=== PATIENT | female | born 1990 | race Caucasian/White ===

== ENCOUNTER 2017-05-09 20:28 | Emergency (ER) | payer SELFPAY ==
[2017-05-09 20:45] VITALS: O2SAT 99
[2017-05-09 21:03] LABS: RBC URINE < 1 /hpf (0-3); URINE BILIRUBIN NEGATIVE (NEGATIVE); URINE COLOR Colorless (YELLOW); URINE GLUCOSE (UA) NORMAL (Normal); URINE KETONE NEGATIVE (NEGATIVE); URINE LEUKOCYTE ESTERASE NEG Leu/uL (Negative); URINE PROTEIN NEGATIVE (NEGATIVE); URINE UROBILINOGEN NORMAL mg/dL (0.2-1.0); WBC URINE < 1 /hpf (0-5)
[2017-05-09 21:05] LABS: URINE BLOOD TRACE (NEGATIVE)
[2017-05-09 21:30] LABS: BASO % 0.3 % (0.0-2.0); EOS # 0.1 K/uL (0.0-0.7); EOS % 1.1 % (0.0-4.0); HEMATOCRIT 38.1 % (34.0-47.0); LYMPH # 2.4 K/uL (1.0-4.3); LYMPH % 29.2 % (20.0-40.0); MEAN CELL VOLUME 86.7 fL (81.0-99.0); MEAN CORPUSCULAR HEMOGLOBIN 29.5 pg (27.0-31.0); MEAN CORPUSCULAR HGB CONC 34.1 g/dL (33.0-37.0); MEAN PLATELET VOLUME 10.4 fL (7.2-11.7); MONO # 0.4 K/uL (0.0-0.8); MONO % 5.2 % (0.0-10.0); RED CELL DISTRIBUTION WIDTH 12.9 % (11.5-14.5); WHITE BLOOD COUNT 8.4 K/uL (4.8-10.8)
[2017-05-09 21:38] LABS: CHLORIDE 101 mmol/L (98-107); SODIUM 136 mmol/L (132-148)
[2017-05-09 21:39] LABS: POTASSIUM 4.2 mmol/L (3.6-5.2)
[2017-05-09 21:40] LABS: GFR AFRICAN-AMERICAN > 60
[2017-05-09 21:41] LABS: ALB/GLOB RATIO 1.2 (1.0-2.1); ALKALINE PHOSPHATASE 58 U/L (38-126); ALT/SGPT 27 U/L (9-52); AST/SGOT 23 U/L (14-36); BILIRUBIN,TOTAL 0.7 mg/dL (0.2-1.3); BLOOD UREA NITROGEN 11 mg/dL (7-17); CARBON DIOXIDE 25 mmol/L (22-30); GLUCOSE,RANDOM 83 mg/dL (65-105); TOTAL PROTEIN 8.4 g/dL (6.3-8.3)
[2017-05-09 21:42] LABS: CALCIUM 9.7 mg/dl (8.6-10.4)
--- NOTE | 2017-05-09 23:00 | US ---
EXAM: US First Trimester, Transabdominal CLINICAL HISTORY: 26 years old, female; Pain; complicated by abdominal or pelvic pain; Lower; First trimester; Gestational age or lmp: 04-06-2017; ; Additional info: Pelvic pain, R/O ectopic TECHNIQUE: Real-time transabdominal obstetrical ultrasound of the maternal pelvis and a first trimester with image documentation. COMPARISON: No relevant prior studies available. FINDINGS: Gestation: Probable gestational sac. No yolk sac. No pole. Mean sac diameter of 0.41 cm, out of range. Uterus/cervix: No subchorionic hemorrhage. No cervical dilatation or effacement. Ovaries: RIGHT ovary: Normal. LEFT ovary: 3.3 x 2.7 x 2.3 hypoechoic lesion with internal echoes. No adnexal masses. Free fluid: Small free fluid within pelvis. IMPRESSION: 1. Probable intrauterine , of uncertain viability. Recommend followup. 2. Probable complex LEFT ovarian cyst. Recommend followup. EXAM: US , Transvaginal CLINICAL HISTORY: 26 years old, female; Pain; complicated by abdominal or pelvic pain; Lower; First trimester; Gestational age or lmp: 04-06-2017; ; Additional info: Pelvic pain, R/O ectopic TECHNIQUE: Real-time transvaginal obstetrical ultrasound of the maternal pelvis and a first trimester with image documentation. Transvaginal imaging was used for better evaluation of the fetus and adnexa. COMPARISON: No relevant prior studies available. FINDINGS: Gestation: Probable gestational sac. No yolk sac. No pole. Mean sac diameter of 0.41 cm, out of range. Uterus/cervix: No subchorionic hemorrhage. No cervical dilatation or effacement. Ovaries: RIGHT ovary: Normal. LEFT ovary: 3.3 x 2.7 x 2.3 hypoechoic lesion with internal echoes. No adnexal masses. Free fluid: Small free fluid within pelvis.
--- NOTE | 2017-05-09 23:25 | C.PDOC ---
Time Seen by Provider: 05/09/17 20:43 Chief Complaint (Nursing): Abdominal Pain History Per: Patient, Family, Advisor To [employer] History/Exam Limitations: language barrier Onset/Duration Of Symptoms: Days (about 1 week), Intermittent Episodes Current Symptoms Are (Timing): Still Present Severity: Moderate Location Of Pain/Discomfort: Suprapubic Quality Of Discomfort: Unable To Describe, Cramping, "Pain" Associated Symptoms: Nausea Exacerbating Factors: None Alleviating Factors: None Additional History Per: Prior Records Abnormal Vaginal Bleeding: Yes Past Medical History Reviewed: Historical Data, Nursing Documentation, Vital Signs Vital Signs: Last Vital Signs Temp 98.0 F 05/09/17 20:44 Pulse 81 05/09/17 20:44 Resp 20 05/09/17 20:44 BP 118/76 05/09/17 20:44 Pulse Ox 99 05/09/17 20:44 - Medical History PMH: No Chronic Diseases Surgical History: Family History: States: Unknown Family Hx - Social History Hx Alcohol Use: No Hx Substance Use: No Review Of Systems Except As Marked, All Systems Reviewed And Found Negative. Constitutional: Negative for: Fever Cardiovascular: Negative for: Chest Pain, Light Headedness Respiratory: Negative for: Shortness of Breath Gastrointestinal: Positive for: Nausea. Negative for: Vomiting, Diarrhea Genitourinary: Positive for: Vaginal Bleeding (spotting), Pelvic Pain. Negative for: Dysuria Musculoskeletal: Negative for: Neck Pain, Back Pain Skin: Negative for: Rash Neurological: Negative for: Weakness, Numbness Physical Exam - Physical Exam Appears: Non-toxic, No Acute Distress Skin: Normal Color, Warm, Dry, No Rash Head: Atraumatic, Normacephalic Eye(s): bilateral: Normal Inspection, PERRL, EOMI Neck: Normal ROM, Supple Cardiovascular: Rhythm Regular Respiratory: Normal Breath Sounds, No Accessory Muscle Use Gastrointestinal/Abdominal: Soft, Tenderness (mild suprapubic), No Guarding, No Rebound Back: No CVA Tenderness Extremity: Normal ROM Neurological/Psych: Oriented x3, Normal Motor, Normal Sensation ED Course And Treatment - Laboratory Results Result Diagrams: 05/09/17 21:25 05/09/17 21:25 Lab Interpretation: No Acute Changes Urine POC: Positive O2 Sat by Pulse Oximetry: 99 Pulse Ox Interpretation: Normal - CT Scan/US Pelvic US Other Rad Studies (CT/US): Read By Radiologist, Radiology Report Reviewed CT/US Interpretation: IMPRESSION: 1. Probable intrauterine , of uncertain viability. Recommend. followup. 2. Probable complex LEFT ovarian cyst. Recommend followup. - Physician Consult Information Physician Contacted: Dalton Byrne (Imaging Nurse) Outcome Of Conversation: I discussed with her the pt's presentation, labs and US findings. She recommends that pt be discharge home and return in 2 days for repeat beta hcg. Disposition Counseled Patient/Family Regarding: Studies Performed, Diagnosis, Need For Followup, Rx Given - Disposition Referrals: [facility] [Outside] Disposition: HOME/ ROUTINE Disposition Time: 23:26 Condition: STABLE Additional Instructions: Return to the ER in 2 days for repeat hormone level. Return to the ER immediately if you develop fever, dizziness, heavy bleeding, worsening of symptoms or if you have any other concerns. Instructions: Abdominal Pain in (ED) Forms: [employer] (Emirati) Print Language: NEPALI - Clinical Impression Clinical Impression: Complex cyst of left ovary, Pelvic pain during
[2017-05-09 23:37] VITALS: BP 107/61; PULSE 76; RESP 16; TEMP 98
== END 2017-05-09 23:37 | disposition home or self-care (01) ==
LOC: C.ER 20:28
DX: O34.81 Maternal care for other abnormalities of pelvic organs, first trimester (principal); N83.202 Unspecified ovarian cyst, left side; O26.891 Other specified pregnancy related conditions, first trimester; R10.2 Pelvic and perineal pain

== ENCOUNTER 2017-05-11 19:44 | Emergency (ER) | payer SELFPAY ==
--- NOTE | 2017-05-11 23:04 | US ---
EXAM: US , Transvaginal CLINICAL HISTORY: 26 years old, female; Signs and symptoms; Lmp or gestational age (in weeks): 9-20-17; Other: Increas bhcg; ; Additional info: Increasing bhcg, HX left complex cyst TECHNIQUE: Real-time transvaginal obstetrical ultrasound of the maternal pelvis and a first trimester with image documentation. Transvaginal imaging was used for better evaluation of the fetus and adnexa. COMPARISON: US - PREG 1ST TRIMESTER/OB TV 2017-05-09 21:50 FINDINGS: Gestation: Probable gestational sac. No yolk sac. No pole. Mean sac diameter of 0.60 cm, out of range. Uterus/cervix: Retroverted uterus. No subchorionic hemorrhage. No cervical dilatation or effacement. Ovaries: RIGHT ovary: Normal. LEFT ovary: 3.4 x 2.2 x 2.2 cm septated hypoechoic lesion. No adnexal masses. Free fluid: Small free fluid within pelvis. IMPRESSION: 1. Probable intrauterine , of uncertain viability. Recommend followup. 2. Probable complex LEFT ovarian cyst. Recommend followup.
--- NOTE | 2017-05-11 23:39 | C.PDOC ---
History Of Present Illness 26 y/o female with lmp 04/06, seen in ED 2 days ago for vaginal spotting and abdominal pain, with no iup noted, ?gestational sac and complex left ovarian cyst seen on us. pt told to return to ED in 2 days for repeat blood work, denies any abdominal pain, denies vaginal bleeding. Time Seen by Provider: 05/11/17 20:40 Chief Complaint (Nursing): Medical Clearance History Per: Patient History/Exam Limitations: no limitations Current Symptoms Are (Timing): Gone Severity: None Reports Recently: Seen In ED (2 days ago) Past Medical History Reviewed: Historical Data, Nursing Documentation, Vital Signs Vital Signs: Last Vital Signs Temp 97.9 F 05/12/17 00:10 Pulse 70 05/12/17 00:10 Resp 16 05/12/17 00:10 BP 111/73 05/12/17 00:10 Pulse Ox 97 05/12/17 00:10 - Medical History PMH: No Chronic Diseases Surgical History: Family History: States: Unknown Family Hx - Social History Hx Tobacco Use: No Hx Alcohol Use: No Hx Substance Use: No Review Of Systems Constitutional: Negative for: Fever, Chills Cardiovascular: Negative for: Chest Pain Respiratory: Negative for: Cough Gastrointestinal: Negative for: Vomiting, Abdominal Pain Genitourinary: Negative for: Dysuria, Frequency, Vaginal Bleeding Physical Exam - Physical Exam Appears: Non-toxic, No Acute Distress Skin: Warm, Dry Head: Atraumatic, Normacephalic Oral Mucosa: Moist Neck: Supple Cardiovascular: Rhythm Regular, No Murmur Respiratory: Normal Breath Sounds, No Rales, No Rhonchi, No Wheezing Gastrointestinal/Abdominal: Bowel Sounds, Soft, No Tenderness Neurological/Psych: Oriented x3, Normal Speech, Normal Cognition ED Course And Treatment O2 Sat by Pulse Oximetry: 100 Medical Decision Making Medical Decision Making: discussed with Dr Heck; recommended us after increase in bhcg; repeat us done, and similar to us of 2 days ago, still with ? gestational sac, no pole or yolk sac with similar size left complex ovarian cyst., If patient continues to have no pain or bleeding, should return in 2 days to ed for repeat bhcg and us; if no gestational sac seen at that time, CHAIRMAN PRESIDENT AND CHIEF EXECUTIVE OFFICER consult should be obtained and consideration for ectopic be explored. pt to ed sooner if pt develops pain or bleeding with concern for ectopic. pt made aware of plan. environmental health nurse Candis Avalos [phone], Shamika Epperson used in ED> Disposition Counseled Patient/Family Regarding: Studies Performed, Diagnosis, Need For Followup - Disposition Referrals: [facility] [Outside] Disposition: HOME/ ROUTINE Disposition Time: 23:45 Condition: STABLE Additional Instructions: Regrese a la derick de urgencias de inmediato si tiene sangrado vaginal hafsa o dolor, mareos o aturdimiento para piper evaluacin ms profunda del embarazo ect jesse. Regrese a la derick de urgencias en 48 horas si contina sin dolor vaginal o sangrado para otro anlisis de chen y ecografa para evaluar el embarazo. . Instructions: Threatened Miscarriage (ED) Forms: Gen Discharge Inst Welsh, [employer] (Welsh) Print Language: ROMANIAN - Clinical Impression Clinical Impression: Threatened
[2017-05-12 00:11] VITALS: BP 111/73; PULSE 70; RESP 16; TEMP 97.9
[2017-05-13 15:24] VITALS: O2SAT 100
== END 2017-05-11 23:55 | disposition home or self-care (01) ==
LOC: C.ER 19:44
DX: O20.0 Threatened abortion (principal); Z3A.00 Weeks of gestation of pregnancy not specified